=== PATIENT | female | born 1975 ===

== ENCOUNTER 2019-04-06 02:08 | Emergency (ER) | payer BC ==
--- NOTE | 2019-04-06 02:18 | Emergency Department Record ---
History of Present Illness - General Chief complaint: Lower Extremity Pain Stated complaint: RIGHT LEG PAIN Time Seen by Provider: 04/06/19 02:12 Source: Patient Mode of Arrival: Ambulatory Limitations: No limitations - History of Present Illness Initial comments: 43 yo female presents with right leg pain. She injured herself sliding into a hot tube. She has had some pain in the low back, down the right side of the leg. The pain is throbbing in nature. She is not on any blood thinners. No weakness. She does have some pain with standing. No other pain or injuries. No bruising or swelling. No prior injury to the leg. She has some tight mus cles in the right lower back and pain down the outside of the leg at times. No medial thigh pain, no calf pain or swelling. No weakness. MD Complaint: Extremity pain, Joint pain -: Days(s) (- Wednesday) Location: Right History of Same: No -: Yes Arthralgia Radiation: Proximal Quality: Aching Consistency: Constant Improves with: Elevation, Immobilization Worsens with: Palpation, Walking, Weight bearing Associated Symptoms: Denies other symptoms - Related Data Allergies Allergy/AdvReac Type Severity Reaction Status Date / Time No Known Allergies Allergy Unknown PT UNSURE Verified 04/06/19 02:22 OF REACTION Review of Systems Constitutional: Denies: Chills, Fever, Malaise, Weakness Eyes: Denies: Eye discharge ENT: Denies: Congestion, Throat pain Respiratory: Denies: Cough, Dyspnea, Wheezes Cardiovascular: Denies: Chest pain, Palpitations, Syncope Endocrine: Denies: Fatigue Gastrointestinal: Denies: Abdominal pain, Diarrhea, Nausea, Vomiting Genitourinary: Denies: Dysuria, Urgency Musculoskeletal: Reports: Arthralgia, Back pain. Denies: Joint swelling, Myalgia, Neck pain Skin: Denies: Bruising, Change in color, Rash Neurological: Denies: Headache, Numbness, Tingling, Tremors, Weakness Psychiatric: Denies: Anxiety Hematological/Lymphatic: Denies: Easy bleeding, Easy bruising Physical Exam - General General Appearance: Alert, Oriented x3, Cooperative, No acute distress Limitations: No limitations - Head Head exam: Atraumatic, Normal inspection - Eye Eye exam: Normal appearance, PERRL. negative: Conjunctival injection, Scleral icterus - ENT ENT exam: Normal exam, Mucous membranes moist Ear exam: Normal external inspection Nasal Exam: Normal inspection Mouth exam: Normal external inspection - Neck Neck exam: Normal inspection - Cardiovascular Peripheral Pulses: 2+: Dorsalis Pedis (R) - GI/Abdominal GI/Abdominal exam: Soft. negative: Distended, Guarding, Rebound, Rigid, Tenderness - Rectal Rectal exam: Deferred - exam: Deferred - Extremities Extremities exam: Normal inspection, Full ROM, Normal capillary refill, Tenderness. negative: Calf tenderness, Joint swelling, Pedal edema Image of Full Body: 1 - mild tenderness, negative log roll for pain, full flexion, mild pain with internal and external rotation of the hip, no calf tenderness, no swelling, brisk R DP. - Back Back exam: Reports: Full ROM. Denies: CVA tenderness (R), CVA tenderness (L), Muscle spasm, Paraspinal tenderness, Tenderness, Vertebral tenderness - Neurological Neurological exam: Abnormal gait, Alert, Normal gait, Oriented X3. negative: Motor sensory deficit - Psychiatric Psychiatric exam: Normal affect, Normal mood. negative: Agitated, Anxious - Skin Skin exam: Dry, Intact, Normal color, Warm Course - Reevaluation(s) Reevaluation #1: 04/06/19 02:29 The examination is consistent with musculoskeletal soft tissue injury from the fall. No clinical signs of DVT. XR ordered given her pain with weight bearing. 04/06/19 02:48 The XRs were reviewed. No acute abnormality I discussed with the patient I recommend follow up with PCP in the next week if pain continues Meantime, home care with rest, NSAID if tolerated and minimize overuse. We discussed reasons to return to the ED as well Disposition Disposition: Discharge Clinical Impression: Leg strain Disposition: Home, Self-Care Condition: (1) Good Instructions: Hip Sprain (ED) Additional Instructions: Review this ER visit and the tests performed with your family doctor if the pain continues Call your doctor for the next available follow up appointment if the pain persist more than a week Return to the ER for a recheck immediately if worse, any new concerns or questions Time of Disposition: 02:49 Quality - Quality Measures Quality Measures: N/A - Blood Pressure Screening Does Patient Have Any of the Following: No Systolic Measurement: ~ Screening for High Blood Pressure: < Pre-Hypertensive BP, F/U Documented > [G8950] Pre-Hypertensive Follow-up Interventions: Referral to alternative/primary care provider.
[2019-04-06] MEDS ORDERED: IBUPROFEN 400 MG TABLET PO ONE (02:54)
--- NOTE | 2019-04-06 03:08 | RADIOLOGY REPORT ---
EXAMINATION: Right Femur, Two Views EXAM DATE: 04/06/2019 2:55 AM TECHNIQUE: AP and lateral INDICATION: fall on Wednesday into a tub COMPARISON: None ENCOUNTER: Initial FINDINGS: The bones are normally mineralized. There is normal alignment of the osseous structures with no evid ence of fracture or dislocation. There are no erosive or destructive lesions. There are no radiopaq ue foreign bodies. IMPRESSION: Normal exam. Dictated by: Amilcar Osorio DO on 04/06/2019 3:00 AM. .
== END 2019-04-06 03:12 | disposition home or self-care (01) ==
LOC: ER 02:08
DX: S76.911A Strain of unspecified muscles, fascia and tendons at thigh level, right thigh, initial encounter (principal); M25.552 Pain in left hip; X50.0XXA Overexertion from strenuous movement or load, initial encounter
CPT/HCPCS: 99283

== ENCOUNTER 2019-04-25 08:15 | Emergency (ER) | payer BC ==
--- NOTE | 2019-04-25 08:34 | Emergency Department Record ---
History of Present Illness - General Stated complaint: HIP PAIN Time Seen by Provider: 04/25/19 08:28 Source: Patient Mode of Arrival: Ambulatory Limitations: No limitations - History of Present Illness Initial comments: 43 yo female presents with right hip pain for about 2 weeks. She slip down in her hot tub initially and injured the right hip. She was seen in the ED and had an XR that was negative. She reports that she was doing better initially. She began an exercise program and now the hip hurts similar to the initial injury. She has pain with weight bearing and prolong sitting. The right hip pain does radiate down the leg laterally. No swelling. No bruising. No numbness, tingling or weakness. She has tried to get into the [facility] to see her PCP but has not been able to schedule and appointment. She was seen at a [facility]. The mediations provided have not helped. MD Complaint: Extremity pain, Joint pain -: Week(s) (2) Location: Right History of Same: Yes -: Yes Arthralgia, Yes Myalgia Radiation: Proximal Quality: Aching Consistency: Constant Improves with: Immobilization Worsens with: Palpation, Walking, Weight bearing Associated Symptoms: Denies other symptoms - Related Data Home Medications Medication Instructions Recorded Confirmed Last Taken Ketorolac Tromethamine 10 mg PO Q6H 04/25/19 04/25/19 Unknown Methocarbamol [Robaxin] 2 tab PO QID 04/25/19 04/25/19 Unknown Previous Rx's Medication Instructions Recorded Hydrocodone/Acetaminophen [Gloster 1 tab PO Q6H PRN #12 tab 04/25/19 5mg/325mg] Allergies Allergy/AdvReac Type Severity Reaction Status Date / Time No Known Allergies Allergy Unknown PT UNSURE Verified 04/06/19 02:22 OF REACTION Review of Systems Constitutional: Denies: Chills, Fever, Malaise, Weakness Eyes: Denies: Eye discharge ENT: Denies: Congestion, Throat pain Respiratory: Denies: Cough, Dyspnea Cardiovascular: Denies: Chest pain, Palpitations, Syncope Endocrine: Denies: Fatigue Gastrointestinal: Denies: Abdominal pain, Diarrhea, Nausea, Vomiting Genitourinary: Denies: Abnormal menses, Dysuria, Urgency Musculoskeletal: Reports: Arthralgia, Back pain (low lumbar). Denies: Joint swelling, Myalgia, Neck pain Skin: Denies: Bruising, Change in color, Rash Neurological: Denies: Headache Psychiatric: Denies: Anxiety Hematological/Lymphatic: Denies: Easy bleeding, Easy bruising Past Medical History - SOCIAL HISTORY Smoking Status: Never smoker Drug Use: None - RESPIRATORY Hx Respiratory Disorders: No - CARDIOVASCULAR Hx Cardio Disorders: No - NEURO Hx Neuro Disorders: No - GI Hx GI Disorders: No - Hx Genitourinary Disorders: No - ENDOCRINE Hx Endocrine Disorders: No - MUSCULOSKELETAL Hx Musculoskeletal Disorders: No - PSYCH Hx Psych Problems: No - HEMATOLOGY/ONCOLOGY Hx Hematology/Oncology Disorders: No Physical Exam - General General Appearance: Alert, Oriented x3, Cooperative, No acute distress Limitations: No limitations - Head Head exam: Atraumatic, Normal inspection - Eye Eye exam: Normal appearance - ENT ENT exam: Normal exam Ear exam: Normal external inspection Nasal Exam: Normal inspection Mouth exam: Normal external inspection - Neck Neck exam: Normal inspection, Full ROM. negative: Tenderness - Respiratory Respiratory exam: Normal lung sounds bilaterally - Cardiovascular Cardiovascular Exam: Regular rate, Normal rhythm, Normal heart sounds - GI/Abdominal GI/Abdominal exam: Soft. negative: Tenderness - Rectal Rectal exam: Deferred - exam: Deferred - Extremities Extremities exam: Normal inspection, Full ROM, Normal capillary refill, Tenderness. negative: Calf tenderness, Joint swelling, Pedal edema Image of Full Body: 1 - lateral tenderness, soft, no bruising, negative log roll, no edema, neuro vascular normal examination on testing - Back Back exam: Reports: Full ROM, Muscle spasm, Paraspinal tenderness (lower lumbar), Tenderness, Vertebral tenderness (sacral). Denies: CVA tenderness (R), CVA tenderness (L) - Neurological Neurological exam: Alert, Oriented X3, Reflexes normal. negative: Altered, Heavenly r sensory deficit - Psychiatric Psychiatric exam: negative: Agitated, Anxious - Skin Skin exam: Dry, Intact, Normal color, Warm Course Vital Signs 04/25/19 08:22 Temperature 98.6 F Pulse Rate [ 65 Pulse Ox Probe] Respiratory 20 Rate Blood Pressure 120/77 [Left Arm] Pulse Ox 99 - Reevaluation(s) Reevaluation #1: 04/25/19 09:31 The prior ED visit was reviewed The prior XR of the Femur was reviewed. Negative The CT scan today was negative for acute disease or injury I [facility] for close follow up and possible referral to physical therapy or further work up as need Dr Slaughter's medical terminologist came to the ED to discuss the follow up in the office Disposition Disposition: Discharge Clinical Impression: Strain of hip Qualifiers: Encounter type: initial encounter Laterality: right Qualified Code(s): S76.011A - Strain of muscle, fascia and tendon of right hip, initial encounter Disposition: Home, Self-Care Condition: (1) Good Instructions: Hip Pain (ED) Additional Instructions: Review this ER visit and the tests performed with your family doctor Call your doctor for the next available follow up appointment Return to the ER for a recheck immediately if worse, any new concerns or questions Take the prescriptions provided as directed Prescriptions: Hydrocodone/Acetaminophen [Gloster 5mg/325mg] 1 tab PO Q6H PRN #12 tab PRN Reason: Pain - General Referrals: Perez Saldivar [DOCTOR OF OSTEOPATH] - [facility] [Provider Group] Forms: Patient Portal Access Time of Disposition: 09:35 Quality - Quality Measures Quality Measures: N/A - Blood Pressure Screening Does Patient Have Any of the Following: No Blood Pressure Classification: Pre-Hypertensive BP Reading Systolic Measurement: 120 Diastolic Measurement: 77 Screening for High Blood Pressure: < Pre-Hypertensive BP, F/U Documented > [G8950] Pre-Hypertensive Follow-up Interventions: Referral to alternative/primary care provider.
--- NOTE | 2019-04-25 09:08 | CT SCAN REPORT ---
EXAMINATION: CT of the Pelvis without Intravenous Contrast. EXAM DATE: 04/25/2019 8:58 AM TECHNIQUE: A standard CT pelvis protocol was performed without intravenous contrast. Sagittal and cor onal images were reconstructed. 3-D volume rendered imaging also acquired at a dependent computer wor kstation. INDICATION: pain for two weeks in right hip, neg XR COMPARISON: None ENCOUNTER: Not applicable FINDINGS: Ureters & Bladder: Both distal ureters have a normal caliber and the urinary bladder is unremarkable . Gastrointestinal: Included large and small bowel segments in the pelvis are unremarkable. Normal appe ndix. Reproductive Organs: The uterus and ovaries appear within normal limits though not optimally assessed on CT imaging. Lymphatic System: There is no adenopathy within the pelvis. Vasculature: The iliac arteries have a normal caliber. Peritoneum: There is no free fluid within the pelvis. Retroperitoneum: There is no retroperitoneal mass, hemorrhage, or hematoma. Abdominal Wall & Musculoskeletal: No suspicious bone lesions. 3-D imaging: Within normal limits. IMPRESSION: Within normal limits. Dictated by: Rohan Dave DO on 04/25/2019 9:02 AM. .
[2019-04-25] MEDS: MORPHINE SULFATE 5 MG/ML VIAL IM ONE (09:37)
== END 2019-04-25 10:10 | disposition home or self-care (01) ==
LOC: ER 08:15
DX: S76.011A Strain of muscle, fascia and tendon of right hip, initial encounter (principal); M79.651 Pain in right thigh; X50.0XXA Overexertion from strenuous movement or load, initial encounter; Y92.009 Unspecified place in unspecified non-institutional (private) residence as the place of occurrence of the external cause
CPT/HCPCS: 72192; 96372; 99284